=== PATIENT | female | born 1950 | race Caucasian/White ===

== ENCOUNTER 2025-02-02 13:42 | Emergency (ER) | payer MEDICARE, OTHER, SELFPAY ==
[2025-02-02 13:54] VITALS: BP 137/76; PULSE 71; RESP 16; TEMP 36.6; O2SAT 98; BMI 26.4
--- NOTE | 2025-02-02 13:56 | DI.CT.S_ITS ---
PROCEDURE: CT HEAD/BRAIN WO CON INDICATIONS: headache, neck pain TECHNIQUE: Noncontrast 4.5 mm thick angled axial sections acquired from the foramen magnum to the vertex, with coronal and sagittal reformats. For radiation dose reduction, the following was used: automated exposure control, adjustment of mA and/or kV according to patient size. COMPARISON: None. FINDINGS: Image quality: Diagnostic. CSF spaces: Basal cisterns are patent. No extra-axial fluid collections. The ventricles are symmetric in size and shape. Brain: No intracranial bleeds or mass effect. There is cerebral volume loss, with resultant ventricular and sulcal prominence. There are periventricular and deep white matter chronic small vessel ischemic changes. There is intracranial internal carotid artery atherosclerosis. Skull and face: Calvarium and visualized facial bones appear intact, without suspicious lesions. Sinuses: Visualized sinuses and mastoids are clear. IMPRESSION: No acute intracranial pathology. Dictated by: Tye Thompson M.D. on 02/02/2025 at 14:55 Approved by: Tye Thompson M.D. on 02/02/2025 at 14:56
--- NOTE | 2025-02-02 13:56 | DI.CT.S_ITS ---
PROCEDURE: CT CERVICAL SPINE WO CON INDICATIONS: headache, neck pain TECHNIQUE: Noncontrast 3 mm thick sections acquired from the skull base to the T4 level. Sagittal and coronal reformats were then constructed. For radiation dose reduction, the following was used: automated exposure control, adjustment of mA and/or kV according to patient size. COMPARISON: None. FINDINGS: Image quality: Excellent. Bones: No fractures or dislocations. Diffuse osteopenia. Bilateral uncovertebral joint hypertrophy C5-C6 and C6-C7, as well as multilevel facet arthropathy. There is multilevel bilateral foraminal narrowing. Visualized superior ribs are intact. Soft tissues: Prevertebral soft tissues are normal in thickness. No paravertebral hematomas. No apical pneumothoraces. IMPRESSION: No displaced fracture or traumatic subluxation. Cervical spondylosis with multilevel bilateral foraminal narrowing. Dictated by: Tye Thompson M.D. on 02/02/2025 at 14:56 Approved by: Tye Thompson M.D. on 02/02/2025 at 14:58
[2025-02-02] MEDS: KETOROLAC 30 MG/ML VIAL IM (14:51)
[2025-02-02 17:48] VITALS: BP 163/72; PULSE 70; RESP 18; O2SAT 98
--- NOTE | 2025-02-08 18:59 | ED_ITS ---
HPI - Neck Pain/Injury <Opal Sanches PA-C - Last Filed: 02/08/25 19:07> General Chief Complaint: Neck Pain/Injury Stated Complaint: neck pain and stiffness,since oct worse yesterday Time Seen by Provider: 02/02/25 13:52 Mode of arrival: Ambulatory History of Present Illness HPI Narrative: 74-year-old female presents to the ED with neck pain for 1 day. Patient states that she has had a stiff neck since October, however the pain got exacerbated yesterday. Patient complains of pain with movement. Pain does not travel. No numbness, tingling, weakness. No trauma. Patient does state that she went to an exercise class yesterday which was quite strenuous. Related Data Allergies Allergy/AdvReac Type Severity Reaction Status Date / Time No Known Drug Allergies Allergy Verified 02/02/25 13:54 Review of Systems <Opal Sanches PA-C - Last Filed: 02/08/25 19:07> Constitutional Constitutional: Denies chills, Denies fatigue, Denies fever(s), Denies frequent falls, Denies lethargy and Denies weakness Eyes Eyes: Denies change in vision, Denies eye discharge, Denies irritation and Denies loss of vision ENT Ears, Nose, Mouth, and Throat: Denies change in voice, Denies dizziness, Reports neck pain, Denies sore throat and Denies throat swelling Cardiovascular Cardiovascular: Denies chest pain, Denies irregular heart rhythm, Denies lightheadedness, Denies palpitations, Denies dyspnea, Denies dyspnea on exertion and Denies orthopnea Respiratory Respiratory: Denies cough, Denies dyspnea, Denies dyspnea on exertion and Denies wheezing Gastrointestinal Gastrointestinal: Denies abdominal pain, Denies change in bowel habits, Denies diarrhea, Denies nausea and Denies vomiting Musculoskeletal Musculoskeletal: Reports neck pain and Denies numbness Integumentary/Breasts Skin/Breast: Denies pruritus, Denies erythema, Denies rash and Denies wounds Neurologic Neurologic: Denies behavioral changes, Denies confusion, Denies dizziness, Denies frequent falls, Denies loss of vision, Denies numbness and Denies weakness Psychiatric Psychiatric: Denies anxiety, Denies behavioral changes, Denies confusion, Denies depression, Denies homicidal ideation and Denies suicidal ideation Endocrine Endocrine: Denies fatigue, Denies flushing and Denies palpitations Hematologic/Lymphatic Hematologic/Lymphatic: Denies easy bruising Allergic/Immunologic Allergic/Immunologic: Denies urticaria, Denies throat swelling and Denies wheezing Patient History <Opal Sanches PA-C - Last Filed: 02/08/25 19:07> Social History Smoking Status: Never smoker Smoking Status: Never smoker Exam <Opal Sanches PA-C - Last Filed: 02/08/25 19:07> Narrative Exam Narrative: Const General:?cooperative, healthy appearing and comfortable [facility] Head:?normal to inspection Ears:?hearing grossly normal bilaterally Nose:?external nose normal Face and sinus:?normal facial exam and sinuses nontender Mouth:?oral mucosae normal Throat:?posterior oropharynx normal Eyes General:?appearance normal, both eyes and all related structures Neck Neck:?normal visual inspection and no lymphadenopathy noted Resp Effort & Inspection:?normal respiratory effort Auscultation:?clear to auscultation bilaterally Cardio Rate:?regular rate Rhythm:?regular rhythm Musculoskeletal No midline tenderness to palpation. No paraspinal tenderness to palpation. Range of motion of night limited by pain. Neurovascularly intact. Neuro General:?patient alert, patient awake and patient oriented x3 Initial Vital Signs Initial Vital Signs: Vital Signs Temperature 97.8 F 02/02/25 13:54 Pulse Rate 71 02/02/25 13:54 Respiratory Rate 16 02/02/25 13:54 Blood Pressure 137/76 02/02/25 13:54 Pulse Oximetry 98 02/02/25 13:54 Oxygen Delivery Method Room Air 02/02/25 13:54 <Gene Sood MD - Last Filed: 02/09/25 07:12> Initial Vital Signs Initial Vital Signs: Vital Signs Temperature 97.8 F 02/02/25 13:54 Pulse Rate 71 02/02/25 13:54 Respiratory Rate 16 02/02/25 13:54 Blood Pressure 137/76 02/02/25 13:54 Pulse Oximetry 98 02/02/25 13:54 Oxygen Delivery Method Room Air 02/02/25 13:54 Course <Opal Sanches PA-C - Last Filed: 02/08/25 19:07> Orders Ordered: Discontinued Medications Ketorolac Tromethamine (Ketorolac 30 Mg/Ml Vial) 30 mg IM NOW ONE Stop: 02/02/25 14:02 Last Admin: 02/02/25 14:51 Dose: 30 mg Documented By: CARMEL <Gene Sood MD - Last Filed: 02/09/25 07:12> Orders Ordered: Discontinued Medications Ketorolac Tromethamine (Ketorolac 30 Mg/Ml Vial) 30 mg IM NOW ONE Stop: 02/02/25 14:02 Last Admin: 02/02/25 14:51 Dose: 30 mg Documented By: CARMEL MDM - Neck Pain/Injury <Opal Sanches PA-C - Last Filed: 02/08/25 19:07> [facility] Narrative Medical decision making narrative: 74-year-old female presents to the ED with neck pain for 1 day. Concern for fracture/dislocation versus mass versus disc etiology versus musculoskeletal sprain/strain versus other. Will obtain CT head, CT neck. Will give Toradol. Will reassess. Symptoms improved with Toradol. CT head without acute intracranial pathology. CT C-spine with no displaced fracture or traumatic subluxation. There is cervical spondylosis with multilevel bilateral foraminal narrowing. Discussed findings with patient that symptoms are likely due to a musculoskeletal sprain/strain versus disc etiology. Recommend follow-up with PCP if symptoms do not improve in a few days. Supportive measures discussed. ED return precautions discussed with patient. Patient verbalized understanding. Medical records reviewed: Yes Discharge Plan Departure Patient Disposition: Home Clinical Impression: Strain of neck muscle Qualifiers: Encounter type: initial encounter Qualified Code(s): S16.1XXA - Strain of muscle, fascia and tendon at neck level, initial encounter Instructions: DI for Neck Pain Activity Restrictions/Additional Instructions: You were evaluated in the emergency department today for neck pain. The CT scans of your head and neck did not show any acute findings that could explain your symptoms. You do have some degenerative changes in your neck. Your symptoms are likely due to either a musculoskeletal sprain/strain of your neck versus disc issues. You may continue taking Tylenol, ibuprofen, applying ice to your neck. Please follow-up with your primary care physician as soon as possible for further evaluation. Return to the ED if you have worsening symptoms, numbness, tingling, weakness. Stand Alone Forms: Patient Portal/API ED Sign-out <Gene Sood MD - Last Filed: 02/09/25 07:12> Cosign ED Attending Cosignature Attestation: I was immediately available in the department for consultation. ?This documentation has been reviewed and I agree with assessment and plan. Supervised by Gene Sood MD
== END 2025-02-02 17:50 | disposition home or self-care (01) ==
PROVIDERS: Emergency Provider Student in an Organized Health Care Education/Training Program
DX: S16.1XXA Strain of muscle, fascia and tendon at neck level, initial encounter (principal); X50.9XXA Other and unspecified overexertion or strenuous movements or postures, initial encounter
CPT/HCPCS: 70450; 72125; 96372; 99283; 99284; J1885